=== PATIENT | male | born 1950 | race Caucasian/White ===

== ENCOUNTER → 2018-01-02 12:39 | Outpatient (CLI) | payer BC, SELFPAY ==
--- NOTE | 2018-01-02 12:44 | CT_ITS ---
STUDY: CT LUMBAR SPINE WITHOUT CONTRAST REASON FOR EXAM: Male, 67 years old. Back pain RADIATION DOSAGE (If Supplied By Facility): CTDIvol = ( 35.56 ) mGy, DLP = ( 970.72 ) mGycm TECHNIQUE: The patient was scanned in a multi detector CT scanner. High resolution transaxial imaging was performed. Images were obtained from T12 to S3. Sagittal and coronal images were reconstructed. Individualized dose optimization techniques were used for this CT. COMPARISON: None FINDINGS: Normal lumbar lordosis. Mild dextroconvex scoliosis. Slight anterior subluxation L4-5 without pars defects. Normal vertebrae of the lumbar spine. L1-2: Normal endplates. Normal disc height and morphology. Normal bilateral facet joints. Normal central canal and bilateral lateral recesses. Normal bilateral intervertebral neural foramina. L2-3: Normal endplates. Normal disc height and morphology. Normal bilateral facet joints. Normal central canal and bilateral lateral recesses. Normal bilateral intervertebral neural foramina. L3-4: Moderate central lateral trefoil type spinal stenosis due to a circumferential disc marginal osteophyte. L4-5: Severe central lateral trefoil type spinal stenosis. Slight anterior subluxation. L5-S1: Normal endplates. Normal disc height and morphology. Normal bilateral facet joints. Normal central canal and bilateral lateral recesses. Normal bilateral intervertebral neural foramina. Normal visualized paraspinous soft tissue structures. IMPRESSION: Multilevel Central lateral spinal stenosis most severe at L4-5 where there is grade 1 spondylolisthesis but not spondylolysis. Electronically Signed: Alfred Terry MD at 16:59 EDT , Service support , CT/Spine Lumbar without Contrast
== END ==
PROVIDERS: Visit Provider Anesthesiology Pain Medicine
DX: M48.061 Spinal stenosis, lumbar region without neurogenic claudication (principal); M43.16 Spondylolisthesis, lumbar region
CPT/HCPCS: 72131

== ENCOUNTER → 2018-01-15 11:52 | Outpatient (CLI) | payer MEDICARE, SELFPAY ==
[2018-01-15 12:42] LABS: Amphetamine Urine VISTA NEGATIVE (<1000 ng/mL); Barbiturate Urine VISTA NEGATIVE (< 200 ng/mL); Benzodiazepine Urine VISTA NEGATIVE (< 200 ng/mL); Cocaine Urine VISTA NEGATIVE (< 300 ng/mL); Ecstacy Urine VISTA NEGATIVE (< 500 ng/mL); Methadone Urine VISTA NEGATIVE (< 300 ng/mL); PCP Urine VISTA NEGATIVE (< 25 ng/mL); THC Urine VISTA NEGATIVE (< 50 ng/mL); Vista UDS pH Range 6
== END ==
PROVIDERS: Visit Provider Anesthesiology Pain Medicine
DX: F11.20 Opioid dependence, uncomplicated (principal)
CPT/HCPCS: 80307

== ENCOUNTER → 2019-03-06 09:46 | Outpatient (CLI) | payer MEDICARE, SELFPAY ==
[2019-03-06 09:36] VITALS: BMI 34.0
--- NOTE | 2019-03-06 09:47 | RAD_ITS ---
STUDY: X-RAY - LEFT SHOULDER REASON FOR EXAM: Chronic pain. TECHNIQUE: 3 view(s) of the shoulder. COMPARISON: None. FINDINGS: There is severe joint space narrowing of the glenohumeral articulation with subchondral eburnation. There is a small undersurface osteophyte of the distal clavicle on the scapular Y view. Normal acromion. Normal humeral head and visualized proximal humerus. There is calcific tendinitis. Normal visualized pulmonary apex. RAD/Shoulder min 2 Views IMPRESSION: Glenohumeral arthrosis. Calcific tendinitis. Small undersurface osteophyte of the distal clavicle. Electronically Signed: Enrique Diaz MD at 10:25 EDT Tel , Service support ,
== END ==
PROVIDERS: Referring Provider Orthopaedic Surgery; Visit Provider Orthopaedic Surgery
DX: M25.512 Pain in left shoulder (principal)
CPT/HCPCS: 73030

== ENCOUNTER → 2019-06-10 09:21 | Outpatient (CLI) | payer MEDICARE, SELFPAY ==
[2019-06-10 09:14] VITALS: BMI 34.0
--- NOTE | 2019-06-10 09:23 | RAD_ITS ---
STUDY: X-RAY - LEFT SHOULDER REASON FOR EXAM: Shoulder pain. TECHNIQUE: 4 view(s) of the shoulder. COMPARISON: Radiographs 03/06/2019. FINDINGS: There is severe joint space narrowing of the glenohumeral joint with subchondral eburnation/cystic change and humeral osteophytes. There is a small undersurface osteophyte of the distal clavicle. Normal acromion. Normal humeral head and visualized proximal humerus. There is calcific tendinitis as on the prior study. Normal visualized pulmonary apex. RAD/Shoulder min 2 Views IMPRESSION: Advanced glenohumeral arthrosis. Calcific tendinitis. Electronically Signed: Enrique Diaz MD at 12:15 EST Tel , Service support ,
== END ==
PROVIDERS: Referring Provider Orthopaedic Surgery; Visit Provider Orthopaedic Surgery
DX: S49.92XA Unspecified injury of left shoulder and upper arm, initial encounter (principal); X58.XXXA Exposure to other specified factors, initial encounter; M19.012 Primary osteoarthritis, left shoulder; M75.32 Calcific tendinitis of left shoulder
CPT/HCPCS: 73030

== ENCOUNTER → 2019-08-26 16:19 | Outpatient (CLI) | payer MEDICARE, SELFPAY ==
[2019-06-10 09:14] VITALS: BMI 34.0
[2019-08-26 17:36] LABS: Amphetamine Urine VISTA NEGATIVE (<1000 ng/mL); Barbiturate Urine VISTA NEGATIVE (< 200 ng/mL); Benzodiazepine Urine VISTA NEGATIVE (< 200 ng/mL); Cocaine Urine VISTA NEGATIVE (< 300 ng/mL); Ecstacy Urine VISTA NEGATIVE (< 500 ng/mL); Methadone Urine VISTA NEGATIVE (< 300 ng/mL); PCP Urine VISTA NEGATIVE (< 25 ng/mL); THC Urine VISTA POSITIVE (< 50 ng/mL); Vista UDS pH Range 7
== END ==
PROVIDERS: Referring Provider Anesthesiology Pain Medicine; Visit Provider Anesthesiology Pain Medicine
DX: F11.20 Opioid dependence, uncomplicated (principal)
CPT/HCPCS: 80307

== ENCOUNTER → 2020-02-11 09:08 | Outpatient (CLI) | payer MEDICARE, SELFPAY ==
[2019-09-11 08:55] VITALS: BMI 34.0
[2020-02-11 09:38] LABS: Amphetamine Urine VISTA NEGATIVE (<1000 ng/mL); Barbiturate Urine VISTA NEGATIVE (< 200 ng/mL); Benzodiazepine Urine VISTA NEGATIVE (< 200 ng/mL); Cocaine Urine VISTA NEGATIVE (< 300 ng/mL); Ecstacy Urine VISTA NEGATIVE (< 500 ng/mL); Methadone Urine VISTA NEGATIVE (< 300 ng/mL); PCP Urine VISTA NEGATIVE (< 25 ng/mL); THC Urine VISTA POSITIVE (< 50 ng/mL); Vista UDS pH Range 7
== END ==
PROVIDERS: PCP Family Medicine; Referring Provider Anesthesiology Pain Medicine; Visit Provider Anesthesiology Pain Medicine
DX: F11.20 Opioid dependence, uncomplicated (principal)
CPT/HCPCS: 80307

== ENCOUNTER → 2020-08-23 13:10 | Outpatient (CLI) | payer MEDICARE, SELFPAY ==
[2020-08-19 14:28] VITALS: BMI 35.6
--- NOTE | 2020-08-23 13:12 | MRI_ITS ---
STUDY: MRI CERVICAL SPINE WITHOUT CONTRAST REASON FOR EXAM: Male, 69 years old. TECHNIQUE: Standardized fat and water weighted pulse sequences were obtained in the sagittal and axial planes. The axial images are degraded by motion artifact limiting evaluation. COMPARISON: None FINDINGS: Normal foramen magnum and brainstem-cervical cord junction. Normal craniovertebral junction. Normal anterior atlantoaxial articulation. Normal odontoid process. There is straightening of the normal cervical lordosis. Disc desiccation is present at all levels. C2-3: Normal endplates. Normal disc height and morphology. Normal central canal and intervertebral neural foramina. C3-4: Moderate to severe disc space narrowing with a diffuse disc osteophyte complex contributing to mild central canal stenosis. Mild bilateral foraminal stenosis is present without nerve root compression. C4-5: Mild to moderate disc space narrowing with a diffuse disc spur complex centrally and a mild central canal stenosis with mass effect on the anterior aspect of the cord. Mild left foraminal stenosis is seen without definite nerve root compression. Normal right neural foramen. C5-6: Severe disc space narrowing with a diffuse disc osteophyte complex causing mild central canal stenosis. The foramina are poorly visualized on the axial images C6-7: Severe disc space narrowing with a diffuse is osteophyte complex causing mild to moderate central canal stenosis. Moderate bilateral foraminal stenosis is present with nerve root compression due to uncovertebral facet joint hypertrophy. C7-T1: Normal endplates. Mild disc space narrowing without bulging or herniation. Normal central canal and intervertebral neural foramina. Normal cervical cord. There is no demonstrated cervical cord syrinx cavity. Normal visualized soft tissue structures. MRI/Spine Cervical (Routine) IMPRESSION: 1. Multilevel degenerative changes, as described above. 2. Mild to moderate central canal stenosis from C3-C4 down to C7. 3. The intervertebral neural foramina are poorly visualized at several levels. Electronically Signed: Papi Henry MD at 23:57 EST , Service support ,
[2020-08-23 13:45] VITALS: BP 126/83; PULSE 89; RESP 16; O2SAT 97
[2020-08-23 14:00] VITALS: BP 134/77; PULSE 87; RESP 16; O2SAT 98
[2020-08-23 14:14] VITALS: BP 122/68; PULSE 89; RESP 16; O2SAT 93
== END ==
PROVIDERS: PCP Family Medicine; Referring Provider Orthopaedic Surgery; Visit Provider Orthopaedic Surgery
DX: M54.12 Radiculopathy, cervical region (principal)
CPT/HCPCS: 72141

== ENCOUNTER → 2020-09-08 12:42 | Outpatient (CLI) | payer MEDICARE, SELFPAY ==
[2020-08-19 14:28] VITALS: BMI 35.6
[2020-09-08 13:43] LABS: Amphetamine Urine VISTA NEGATIVE (<1000 ng/mL); Barbiturate Urine VISTA NEGATIVE (< 200 ng/mL); Benzodiazepine Urine VISTA NEGATIVE (< 200 ng/mL); Cocaine Urine VISTA NEGATIVE (< 300 ng/mL); Ecstacy Urine VISTA NEGATIVE (< 500 ng/mL); Methadone Urine VISTA NEGATIVE (< 300 ng/mL); PCP Urine VISTA NEGATIVE (< 25 ng/mL); THC Urine VISTA POSITIVE (< 50 ng/mL); Vista UDS pH Range 5
== END ==
PROVIDERS: PCP Family Medicine; Referring Provider Anesthesiology Pain Medicine; Visit Provider Anesthesiology Pain Medicine
DX: F11.20 Opioid dependence, uncomplicated (principal)
CPT/HCPCS: 80307

== ENCOUNTER 2020-10-05 15:30 | Outpatient (RCR) | payer MEDICARE, SELFPAY ==
[2020-09-10 13:38] VITALS: BMI 35.6
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
--- NOTE | 2021-04-17 17:02 | HP.PT.NRP ---
HEVER Boone LYRIC Mckeon was seen in my office for initial evaluation on 09/16/20. The following Plan of Care was established for this patient: Initial Frequency: 2-3x /Week Initial Duration: 4-6 Weeks Patient/Client Instruction: Educate patient on: Condition, Plan of Care, Risk Factors, Benefits of Fitness Program For the Purpose of:: To improve self management Therapeutic Exercise to Include: Strength training, Body mechanics, Postural training, Flexibilty training, Neuromotor development, In an aquatic setting, Dynamic Lumbar Stabilization For the Purpose of:: To decrease pain, To improve muscle performance and motor function, To increase tolerance to activity/condition/position, To improve ability of physical actions for home/community/work/leisure This patient was last seen in our office 10/05/20. Pertinent comments regarding their Physical therapy will appear below: This patient has not returned to Physical Therapy and is appropriate to return to MD for further follow-up as needed. At this point I will be discontinuing this patient from physical therapy. I would be happy to see this patient again in the future if found appropriate by the physician. Thank you! Jannet Lazcano, PT, Cert MDT Balance/Gait/Functional tests - Balance/Special Test Scores Oswestry Low Back Score: 22
== END 2020-10-05 19:00 | disposition home or self-care (01) ==
LOC: PT 15:30
PROVIDERS: PCP Family Medicine; Referring Provider Orthopaedic Surgery; Visit Provider Orthopaedic Surgery
DX: M54.5 Low back pain (principal)
CPT/HCPCS: 97112; 97113; 97162

== ENCOUNTER → 2021-01-04 13:04 | Outpatient (CLI) | payer MEDICARE, SELFPAY ==
[2020-12-23 08:30] VITALS: BMI 35.6
--- NOTE | 2021-01-04 13:06 | MRI_ITS ---
STUDY: MRI LUMBAR SPINE WITHOUT CONTRAST REASON FOR EXAM: Male, 70 years old. LBP TECHNIQUE: Standardized fat and water weighted pulse sequences were obtained in the sagittal and axial planes. COMPARISON: X-ray 12/22/2020 FINDINGS: T12-L1: Normal endplates. Normal disc height, hydration and morphology. Normal bilateral facet joints. Normal central canal and bilateral lateral recesses. Normal bilateral intervertebral neural foramina. Normal lumbar lordosis. Mild dextroscoliosis centered at L3. Normal conus medullaris that terminates at the L1/L2. L1-2: Normal endplates. Normal disc height, hydration and morphology. Normal bilateral facet joints. Normal central canal and bilateral lateral recesses. Normal bilateral intervertebral neural foramina. L2-3: Disc desiccation but no disc protrusion, spinal stenosis, or neural foraminal stenosis. L3-4: Moderate bilateral facet hypertrophy. Large broad disc protrusion produces severe spinal stenosis with severe bilateral lateral recess stenosis with effacement of the L4 nerve roots bilaterally and moderate bilateral neural foraminal stenosis with abutment of the exiting L3 nerve roots bilaterally. L4-5: Moderate bilateral facet hypertrophy and ligament flavum hypertrophy. Moderate broad disc protrusion produces severe spinal stenosis with moderate bilateral lateral recess stenosis with abutment of the L5 nerve roots bilaterally and moderate bilateral neural foraminal stenosis with abutment of the exiting L4 nerve roots bilaterally. L5-S1: Disc desiccation but no disc protrusion, spinal stenosis, or neural foraminal stenosis. Normal visualized sacral ala. Normal visualized paraspinous soft tissue structures. MRI/Spine Lumbar (Routine) IMPRESSION: Mild dextroscoliosis with degenerative disc disease as described above. Electronically Signed: Hugh Quijano MD at 16:19 EDT Tel , Service support ,
[2021-01-04 13:45] VITALS: BP 106/65; PULSE 84; RESP 16; O2SAT 97
[2021-01-04 14:00] VITALS: BP 103/71; PULSE 80; RESP 16; O2SAT 92
[2021-01-04 14:15] VITALS: BP 100/70; PULSE 80; RESP 16; O2SAT 91
== END ==
PROVIDERS: PCP Family Medicine; Referring Provider Orthopaedic Surgery; Visit Provider Orthopaedic Surgery
DX: M43.10 Spondylolisthesis, site unspecified (principal)
CPT/HCPCS: 72148